=== PATIENT | female | born 1980 | race Caucasian/White ===

== ENCOUNTER 2019-11-20 18:55 | Emergency (ER) | payer BC ==
[2019-11-20 19:06] VITALS: BP 136/81
--- NOTE | 2019-11-20 19:15 | UC ---
Abdominal Pain Female HPI - HPI Summary HPI Summary: -Per hand alterations tailor: "Indigestion x 2 weeks, feeling bloated at night. Last BM today--diarrhea, onset of vomiting yesterday morning." -here w/ her -sx started 2 wks ago. thought it was a muscle spasm. has a daycare in her home abnd was too busy to go to the [facility]. -she went to [facility] today and per her she was not truthful about the full scope of her sx and told them it was a back spasm. she was told to take 800mgs DONNIE. -pain has worsened significantly today,. had to ask her MIL to come over to help care for the kids bc she couldnt get off the cough. hasnt been able to hold anything down. ate 1 strawberry today only. -no melana, no jaundice. cant tell if its worse after eating. pain localizes to RUQ and rt upper flank. -no fever/chills. -no hematuria. no personal or Fhx kidney stones. -denies preganncy. w/ vasectomy. they have 4 kids - History of Current Complaint Chief Complaint: UCGI Stated Complaint: ABD PAIN Time Seen by Provider: 11/20/19 19:13 Hx Last Menstrual Period: 11/02/19 Pain Intensity: 6 Allergies/Adverse Reactions: Allergies Allergy/AdvReac Type Severity Reaction Status Date / Time No Known Allergies Allergy Verified 11/20/19 18:58 Home Medications: Home Medications Docusate Sodium 60 mg PO ONCE PRN 11/20/19 [History Confirmed 11/20/19] Madelyn 500 mg PO ONCE PRN 11/20/19 [History Confirmed 11/20/19] Ibuprofen TAB* [Advil TAB*] 400 mg PO Q6H PRN 11/20/19 [History Confirmed ] PMH/Surg Hx/FS Hx/Imm Hx Previously Healthy: Yes - Surgical History Surgical History: None - Family History Known Family History: Positive: Other - no kidney stones - Social History Alcohol Use: Weekly Substance Use Type: None Smoking Status (MU): Never Smoked Tobacco Review of Systems All Other Systems Reviewed And Are Negative: Yes Constitutional: Positive: Fatigue. Negative: Fever, Chills Skin: Positive: Negative Eyes: Positive: Negative ENT: Positive: Negative Respiratory: Positive: Negative Cardiovascular: Positive: Negative Gastrointestinal: Positive: Abdominal Pain, Vomiting, Diarrhea, Nausea Genitourinary: Positive: Negative. Negative: Dysuria, Hematuria Motor: Positive: Negative Neurovascular: Positive: Negative Musculoskeletal: Positive: Negative Neurological/Mental Status: Positive: Negative Psychological: Positive: Negative Is Patient Immunocompromised?: No Physical Exam Triage Information Reviewed: Yes Appearance: Pain Distress - rubbing her abdomen, uncomfortable but still smiles and able to speak almost full sentences. Vital Signs: Initial Vital Signs Temp 98.6 F 11/20/19 19:02 Pulse 98 11/20/19 19:02 Resp 18 11/20/19 19:02 BP 136/81 11/20/19 19:02 Pulse Ox 99 11/20/19 19:02 Vital Signs Reviewed: Yes Eye Exam: Normal Eyes: Positive: Other: - no icterus ENT Exam: Normal ENT: Positive: Pharynx normal, TMs normal Neck exam: Normal Neck: Positive: Supple, Nontender, No Lymphadenopathy Respiratory Exam: Normal Respiratory: Positive: Lungs clear, Normal breath sounds, No respiratory distress, No accessory muscle use. Negative: Crackles, Rhonchi, Stridor, Wheezing Cardiovascular Exam: Normal Cardiovascular: Positive: RRR Abdomen Description: Positive: Other: - + RUQ tnederness w/ mild palp. + Godwin' s sign. no RLQ, LLQ or LUQ tendernes, no umbilical tenderness. Negative: CVA Tenderness (R), CVA Tenderness (L), Distended, McBurney's Point Tenderness, Peritoneal Signs, Pulsatile Mass Bowel Sounds: Positive: Present Musculoskeletal Exam: Normal Neurological Exam: Normal Psychological Exam: Normal Skin Exam: Normal Abd Pain Female Course/Dx - Course Course Of Treatment: Uncomfortable pt w/ sx x 2 wks, escalating today. Highly suspect acute GB. We discussed likely need for karlos tonight. They agree to go directly to [facility]. Has been accepted by Kirsten Redd NP. They are reliable and very agreeable. will be driving her. - Differential Dx/Diagnosis Differential Diagnosis: Gall Bladder Disease, Ovarian Cyst, Urinary Tract Infection Provider Diagnosis: Abdominal pain Discharge ED - Sign-Out/Discharge Documenting (check all that apply): Patient Departure All imaging exams completed and their final reports reviewed: No Studies - Discharge Plan Condition: Fair Disposition: TRANS HIGHER LV OF CARE FAC Referrals: Jen Hooks [Primary Care Provider] - Additional Instructions: Please go directly to the [place] [facility]. Do not stop elsewhere. I spoke with Kirsten Redd NP in the ER regarding your symptoms. - Billing Disposition and Condition Condition: FAIR Disposition: Trans Higher Lvl of Care Fac
== END 2019-11-20 19:38 | disposition short-term general hospital (02) ==
LOC: UCCORT 18:55
DX: R10.9 Unspecified abdominal pain (principal); R19.7 Diarrhea, unspecified; R53.83 Other fatigue; R11.2 Nausea with vomiting, unspecified
CPT/HCPCS: 99212; G0463